=== PATIENT | female | born 1960 | race Caucasian/White ===

== ENCOUNTER 2018-02-23 19:49 | Emergency (ER) | payer MEDICARE ==
[~2018-02-23] VITALS: Ht 167.6 cm; Wt 72.6 kg
[~2018-02-23 19:49] MED LIST: ASPI81CH PO; Ambien10 MG; Anastrozole1 GM; CYCL10; Calicum 500+D1 EACH PO; HYDCHL12.5 PO; HYDMOR2 PO; LEVSOD50 PO; Levothyroxine500 MCG PO; Multivitamin1 EAC1 PO; NAPR500; OXYACE5T; OXYACE5T PO; RAMI5 PO; VENL75ER; VIT1CAPS12 PO; ZOLP10 PO
[2018-02-23] MEDS ORDERED: Mobic15 MG PO (21:55)
[2018-02-23] MEDS ORDERED: FENT50TP TOP (21:55)
== END 2018-02-23 23:52 | disposition home or self-care (01) ==
LOC: ER 19:49
DX: M54.5 Low back pain (principal); G89.29 Other chronic pain; Z85.3 Personal history of malignant neoplasm of breast
CPT/HCPCS: 72100; 96361; 96374; 96375; 96376; 99284; J1885; J2060; J3010; J7030

== ENCOUNTER 2019-06-07 13:00 | Day surgery (SDC) | payer MEDICARE ==
[~2019-06-07] VITALS: Ht 165.1 cm; Wt 68.5 kg
[~2019-06-07 13:00] MED LIST changes: +FENT50TP TOP; +Mobic15 MG PO
[2019-06-07] MEDS ORDERED: Neurontin 100100 MG GT (13:28)
== END 2019-06-07 14:32 | disposition home or self-care (01) ==
LOC: ORSCSDS 13:00
PROVIDERS: Internal Medicine Gastroenterology
PROC: 0DBH8ZX Excision of Cecum, Via Natural or Artificial Opening Endoscopic, Diagnostic (ICD-10-PCS; principal; 2019-06-07 14:30)
PROC: 0DBM8ZX Excision of Descending Colon, Via Natural or Artificial Opening Endoscopic, Diagnostic (ICD-10-PCS; principal; 2019-06-07 14:30)
PROC: 0DBK8ZX Excision of Ascending Colon, Via Natural or Artificial Opening Endoscopic, Diagnostic (ICD-10-PCS; principal; 2019-06-07 14:30)
DX: Z12.11 Encounter for screening for malignant neoplasm of colon (principal); Z86.010 Personal history of colon polyps; Z80.0 Family history of malignant neoplasm of digestive organs; D12.4 Benign neoplasm of descending colon; D12.2 Benign neoplasm of ascending colon; D12.0 Benign neoplasm of cecum; K63.5 Polyp of colon; I10 Essential (primary) hypertension; E78.5 Hyperlipidemia, unspecified; E03.9 Hypothyroidism, unspecified; Z79.899 Other long term (current) drug therapy
CPT/HCPCS: 88305; J2704; J7120

== ENCOUNTER 2019-08-26 09:28 | Day surgery (SDC) | payer MEDICARE ==
[~2019-08-26 09:28] MED LIST changes: +Neurontin 100100 MG GT
--- NOTE | 2019-08-26 12:31 | NUR ---
Patient up to Ambulate independently. Gait steady. Discharge instructions reviewed with patient. Patient verbalizes understanding. Copy given to patient to take home. Patient States Post-Procedure ride home has been arranged. Discharged via wheelchair to private car for ride home. Dressing to procedure site clean, dry, intact with no visible drainage, swelling, erythema or bruising noted. Patient arrived in the unit via gurney at 1115, patient stated that her pain was 6/10, which was her normal pain level.
--- NOTE | 2019-08-26 12:37 | NUR ---
ASSUMED CARE OF PT. DENIES ANY NEW PAIN OR NUMBNESS OR TINGLING. BAND AID D/I. FOOT STRENTH STRONG AND EQUAL.
== END 2019-08-26 13:04 | disposition home or self-care (01) ==
LOC: RAD 09:28 → CT 11:00 → RAD 13:04
DX: M51.36 Other intervertebral disc degeneration, lumbar region (principal); M48.07 Spinal stenosis, lumbosacral region; M25.78 Osteophyte, vertebrae; M12.88 Other specific arthropathies, not elsewhere classified, other specified site; Z88.0 Allergy status to penicillin; Z88.1 Allergy status to other antibiotic agents; Z88.2 Allergy status to sulfonamides; Z88.5 Allergy status to narcotic agent; Z88.8 Allergy status to other drugs, medicaments and biological substances; Z79.899 Other long term (current) drug therapy; Z97.8 Presence of other specified devices; Z79.82 Long term (current) use of aspirin
CPT/HCPCS: 62304; 72132; Q9966

== ENCOUNTER → 2019-11-10 | Outpatient (CLI) | payer MEDICARE | LOC: PLD 11:24 → LAB SHORT 11:24 | DX: C44.612 Basal cell carcinoma of skin of right upper limb, including shoulder (principal); C44.619 Basal cell carcinoma of skin of left upper limb, including shoulder | CPT/HCPCS: 88305 ==

== ENCOUNTER 2021-06-04 09:16 | Day surgery (SDC) | payer MEDICARE ==
[~2021-06-04] VITALS: Ht 162.6 cm; Wt 67.5 kg
[2021-06-04] MEDS ORDERED: BELBUCA75 MCG SL (09:54)
== END 2021-06-04 11:30 | disposition home or self-care (01) ==
LOC: ORSCSDS 09:16
PROVIDERS: Internal Medicine Gastroenterology
PROC: 0DBL8ZX Excision of Transverse Colon, Via Natural or Artificial Opening Endoscopic, Diagnostic (ICD-10-PCS; principal; 2021-06-04 10:30)
PROC: 0DBH8ZX Excision of Cecum, Via Natural or Artificial Opening Endoscopic, Diagnostic (ICD-10-PCS; principal; 2021-06-04 10:30)
PROC: 0DBM8ZX Excision of Descending Colon, Via Natural or Artificial Opening Endoscopic, Diagnostic (ICD-10-PCS; principal; 2021-06-04 10:30)
PROC: 0DBK8ZX Excision of Ascending Colon, Via Natural or Artificial Opening Endoscopic, Diagnostic (ICD-10-PCS; principal; 2021-06-04 10:30)
DX: Z12.11 Encounter for screening for malignant neoplasm of colon (principal); D12.0 Benign neoplasm of cecum; D12.2 Benign neoplasm of ascending colon; D12.3 Benign neoplasm of transverse colon; Z86.010 Personal history of colon polyps; Z80.0 Family history of malignant neoplasm of digestive organs; Z79.82 Long term (current) use of aspirin; Z79.899 Other long term (current) drug therapy; K57.30 Diverticulosis of large intestine without perforation or abscess without bleeding
CPT/HCPCS: 88305; J2704; J7120

== ENCOUNTER 2023-05-28 13:05 | Day surgery (SDC) | payer MEDICARE, OTHER ==
[~2023-05-28] VITALS: Ht 162.6 cm; Wt 72.2 kg
[~2023-05-28 13:05] MED LIST changes: +BELBUCA75 MCG SL; +Cymbalta20 MG
[2023-05-28] MEDS ORDERED: MIRALAX17 GM PO (13:39)
[2023-05-28] MEDS ORDERED: BENEFIBER152 G1 (13:40)
[2023-05-28] MEDS ORDERED: DOCU100 PO (13:41)
[2023-05-28 15:10] VITALS: BP 123/75
== END 2023-05-28 15:05 | disposition home or self-care (01) ==
LOC: ORSCSDS 13:05
PROVIDERS: Internal Medicine Gastroenterology
PROC: 0DBL8ZX Excision of Transverse Colon, Via Natural or Artificial Opening Endoscopic, Diagnostic (ICD-10-PCS; principal; 2023-05-28 14:15)
PROC: 0DBN8ZX Excision of Sigmoid Colon, Via Natural or Artificial Opening Endoscopic, Diagnostic (ICD-10-PCS; principal; 2023-05-28 14:15)
PROC: 0DBH8ZX Excision of Cecum, Via Natural or Artificial Opening Endoscopic, Diagnostic (ICD-10-PCS; principal; 2023-05-28 14:15)
PROC: 0DBM8ZX Excision of Descending Colon, Via Natural or Artificial Opening Endoscopic, Diagnostic (ICD-10-PCS; principal; 2023-05-28 14:15)
DX: Z86.010 Personal history of colon polyps (principal); D12.0 Benign neoplasm of cecum; D12.5 Benign neoplasm of sigmoid colon; K63.5 Polyp of colon; Z83.71 Family history of colonic polyps; Z85.3 Personal history of malignant neoplasm of breast; Z79.899 Other long term (current) drug therapy; Z79.82 Long term (current) use of aspirin
CPT/HCPCS: 88305; J0461; J2405; J2704; J7120; Q9968

== ENCOUNTER 2025-06-21 09:36 | Day surgery (SDC) | payer MEDICARE, OTHER ==
[~2025-06-21] VITALS: Ht 162.6 cm; Wt 69.1 kg
[~2025-06-21 09:36] MED LIST changes: +BENEFIBER152 G1; +Balanced Salt Epinephrine Irrigation Solution 500 mL IR SCH; +DOCU100 PO; +ELIQUIS5 M3 PO; +MIRALAX17 GM PO; +Moxifloxacin HCL 0.5 MG/0.1 ML 0.4MLSYR LEFTEYE SCH; +NS 500 ML ONE; +PHENYLEPHRINE\\TROPICAMIDE\\TETRACAINE OPHTHALMIC DILATING SOLN LEFTEYE PRN; +Povidone-Iodine 450 DROP/30 ML Solution LEFTEYE SCH; +Povidone-Iodine 450 DROP/30 ML Solution ONE; +Tetracaine HCl/Pf 0.5% Opth Soln 4 ml ONE
[2025-06-21] MEDS ORDERED: NS 500 ML IV ONE (09:53)
--- NOTE | 2025-06-21 09:53 | NUR ---
06/21/25 0953 Bety Khan CALL LIGHT WITHIN REACH.
[2025-06-21] MEDS ORDERED: Tetracaine HCl 0.5% Opth Soln 15 ml LEFTEYE ONE (10:13)
[2025-06-21] MEDS ORDERED: Midazolam HCl 1MG / ML 2ML Vial ONE ×2 (10:15→10:18)
[2025-06-21 10:35] VITALS: BP 144/90
== END 2025-06-21 10:48 | disposition home or self-care (01) ==
LOC: ORSCSDS 09:36
PROVIDERS: Student in an Organized Health Care Education/Training Program
PROC: 08RK3JZ Replacement of Left Lens with Synthetic Substitute, Percutaneous Approach (ICD-10-PCS; principal; 2025-06-21 11:00)
DX: H25.812 Combined forms of age-related cataract, left eye (principal); Z96.1 Presence of intraocular lens; I10 Essential (primary) hypertension; E78.5 Hyperlipidemia, unspecified; E03.9 Hypothyroidism, unspecified; R00.2 Palpitations; Z85.3 Personal history of malignant neoplasm of breast; Z79.899 Other long term (current) drug therapy; Z79.01 Long term (current) use of anticoagulants
CPT/HCPCS: J2250; J7040; V2632

== ENCOUNTER → 2025-08-15 | Outpatient (CLI) | payer MEDICARE, OTHER ==
[~2025-08-15] MED LIST changes: -Balanced Salt Epinephrine Irrigation Solution 500 mL IR SCH; -Moxifloxacin HCL 0.5 MG/0.1 ML 0.4MLSYR LEFTEYE SCH; -NS 500 ML ONE; -PHENYLEPHRINE\\TROPICAMIDE\\TETRACAINE OPHTHALMIC DILATING SOLN LEFTEYE PRN; -Povidone-Iodine 450 DROP/30 ML Solution LEFTEYE SCH; -Povidone-Iodine 450 DROP/30 ML Solution ONE; -Tetracaine HCl/Pf 0.5% Opth Soln 4 ml ONE
[2025-08-18 08:53] LABS: HSV SUBTYPE SOURCE L ARM
[2025-08-18 16:31] LABS: VARICELLA-ZOSTER VIRUS BY PCR Not Detected; VARICELLA-ZOSTER VIRUS SOURCE L ARM
== END ==
LOC: LAB 10:00 → LAB SHORT 10:00
PROVIDERS: General Practice
DX: L08.0 Pyoderma (principal)
CPT/HCPCS: 87529; 87798